=== PATIENT | female | born 1965 | race Two or more races ===

== ENCOUNTER → 2018-06-23 | Outpatient (CLI) | payer OTHER | LOC: LAB 16:56 | PROVIDERS: ATTEND Obstetrics & Gynecology | DX: Z53.9 Procedure and treatment not carried out, unspecified reason (principal) | CPT/HCPCS: 36415; 86850; 86900; 86901 ==

== ENCOUNTER 2018-06-24 08:39 | Inpatient (IN) | payer OTHER ==
[2018-06-21 10:25] LABS: HEMATOCRIT 37.5 % (36.0-47.0); HEMOGLOBIN 12.4 g/dL (12.0-15.5); MEAN CORPUSCULAR HEMOGLOBIN 26.3 pg (27.0-33.4); MEAN CORPUSCULAR HGB CONC 33.1 g/dL (32.0-36.0); MEAN CORPUSCULAR VOLUME 80 fl (80-97); PLATELET COUNT 257 10^3/uL (150-450); RED BLOOD COUNT 4.71 10^6/uL (3.72-5.28); RED CELL DISTRIBUTION WIDTH 15.4 % (11.5-14.0); WHITE BLOOD COUNT 7.7 10^3/uL (4.0-10.5)
[2018-06-21 10:42] LABS: APPEARANCE,URINE CLEAR; BILIRUBIN,URINE NEGATIVE (NEGATIVE); COLOR,URINE YELLOW; GLUCOSE, URINE NEGATIVE (NEGATIVE); KETONES,URINE NEGATIVE (NEGATIVE); LEUKOCYTE ESTERASE,URINE NEGATIVE (NEGATIVE); NITRITE,URINE NEGATIVE (NEGATIVE); PROTEIN,URINE NEGATIVE (NEGATIVE); URINE SPECIFIC GRAVITY 1.012; UROBILINOGEN,URINE NEGATIVE mg/dL (<2.0)
[2018-06-21 10:46] LABS: ALANINE AMINOTRANSFERASE 24 U/L (9-52); ALBUMIN 4.1 g/dL (3.5-5.0); ALKALINE PHOSPHATASE 87 U/L (38-126); ANION GAP 10 (5-19); ASPARTATE AMINO TRANSFERASE 17 U/L (14-36); BILIRUBIN,DIRECT 0.2 mg/dL (0.0-0.4); BILIRUBIN,TOTAL 0.4 mg/dL (0.2-1.3); BLOOD UREA NITROGEN 12 mg/dL (7-20); CALCIUM 9.6 mg/dL (8.4-10.2); CARBON DIOXIDE 29 mmol/L (22-30); CHLORIDE 100 mmol/L (98-107); GLUCOSE 103 mg/dL (75-110); POTASSIUM 4.2 mmol/L (3.6-5.0); SODIUM 139.3 mmol/L (137-145); TOTAL PROTEIN 7.6 g/dL (6.3-8.2)
[~2018-06-24 08:39] MED LIST: CEFAZOLIN 2 GM/D5W RTU 2 GM/50 ML RTUPB IV ONE; CEFAZOLIN 2 GM/D5W RTU 2 GM/50 ML RTUPB IV PRN; LACTATED RINGERS 1000 ML IV PRN; LIDOCAINE 0.5% INJ-PF (5 MG/ML) 50 ML SDV SUBCUT PRN
[2018-06-24] MEDS ORDERED: NEOSTIGMINE METHYLSULFATE 10 MG/10 ML VIAL ONE (08:48)
[2018-06-24] MEDS ORDERED: ONDANSETRON HCL INJ/PF 4 MG/2 ML SDV ONE (08:48)
[2018-06-24] MEDS ORDERED: DEXAMETHASONE SOD PHOSPHATE INJ 4 MG/1 ML VIAL ONE (08:48)
[2018-06-24] MEDS ORDERED: KETOROLAC TROMETHAMINE 60 MG/2 ML SDV ONE (08:48)
[2018-06-24] MEDS ORDERED: GLYCOPYRROLATE 1 MG/5 ML SYRINGE ONE (08:48)
[2018-06-24] MEDS ORDERED: SUCCINYLCHOLINE CHLORIDE INJ 200 MG/10 ML VIAL ONE (08:48)
[2018-06-24] MEDS ORDERED: ROCURONIUM BROMIDE INJ 50 MG/5 ML VIAL IV ONE (08:48)
[2018-06-24] MEDS ORDERED: MIDAZOLAM 2 MG/2 ML INJ ONE (10:46)
[2018-06-24] MEDS ORDERED: FENTANYL CITRATE INJ/PF 250 MCG/5 ML AMPULE ONE (10:46)
[2018-06-24] MEDS ORDERED: ACETAMINOPHEN 1,000 MG/100 ML RTUPB IV ONE (10:47)
[2018-06-24] MEDS ORDERED: PROPOFOL INJ 200 MG/20 ML VIAL IV ONE (10:47)
[2018-06-24] MEDS ORDERED: OXYCODONE-ACETAMINOPHEN 5-325 MG TABLET PO PRN ×3 (11:42→14:07)
[2018-06-24] MEDS ORDERED: DIPHENHYDRAMINE HCL 50 MG/ML VIAL IV PRN (11:42)
[2018-06-24] MEDS ORDERED: PROMETHAZINE HCL INJ 25 MG/1 ML VIAL IV PRN ×3 (11:42→14:07)
[2018-06-24] MEDS ORDERED: MEPERIDINE HCL/PF INJ 25 MG/1 ML DISP.SYRIN IV PRN (11:42)
[2018-06-24] MEDS ORDERED: FENTANYL CITRATE INJ/PF 100 MCG/2 ML AMPUL IV PRN ×2 (11:42)
[2018-06-24] MEDS ORDERED: ACETAMINOPHEN 325 MG TABLET PO PRN (14:07)
[2018-06-24] MEDS ORDERED: SIMETHICONE 80 MG TAB.CHEW PO PRN (14:07)
[2018-06-24] MEDS ORDERED: RINGERS SOLUTION,LACTATED 1,000 ML IV PRN (14:07)
[2018-06-24] MEDS ORDERED: ACETAMINOPHEN 1,000 MG/100 ML RTUPB IV PRN (14:07)
--- NOTE | 2018-06-24 14:26 | Operative Report ---
Operative Report DATE OF SURGERY: 06/24/18 PREOPERATIVE DIAGNOSIS: Heavy menses fibroids and pressure in the pelvis POSTOPERATIVE DIAGNOSIS: Same OPERATION: Laparoscopy followed by an open total abdominal hysterectomy bilateral salpingo-oophorectomy SURGEON: MARIA M SILVER BUTTONER: RAFI MENDOZA ANESTHESIA: GA TISSUE REMOVED OR ALTERED: Uterus ovaries fallopian tubes COMPLICATIONS: None ESTIMATED BLOOD LOSS: 150 cc INTRAOPERATIVE FINDINGS: Fibroid uterus, normal-appearing ovaries, very narrow pelvis PROCEDURE: Patient was taken the OR and placed in supine position. General anesthesia was induced. She is placed in dorsolithotomy position using Edy stirrups. Her vagina perineum and abdomen were prepared and draped in a sterile fashion. The [employer] care uterine manipulator was placed in the uterus after dilating the cervix. A Carr catheter was placed for drainage. Next an incision was made at the umbilicus natural umbilical defect was identified dilated. This allowed to blunt port to be placed. The balloon was inflated. The laparoscope was then used to inspect the pelvis. The uterus had several fibroids. The her pelvis was extremely narrow with poor exposure. It also did not appear that the fibroid uterus would fit out her very narrow vagina. For this reason I decided to proceed with an open case. Patient was placed in a supine position and reprepped and draped. An incision was made on the abdomen in a transverse fashion and carried down the level of fascia. The fascia was nicked in midline and the fascial incision was extended bilaterally. The fascia was off the rectus muscles using sharp and blunt dissection. The rectus muscles were the midline the peritoneum entered without incident. Peritoneal incision was extended superiorly and inferiorly taking care not to injure bladder. The uterus was palpated in the pelvis and grasped with Yazmin thyroid clamp and brought up out of the pelvis. An Prashant retractor was placed. And the bowel contents were packed back with 3 moist lap sponges. Next the round ligaments were clamped ligated and cut using the LigaSure device. This entered the retroperitoneal space. The anterior leaf of the broad ligament was incised creating a bladder flap. Posterior leaf of the broad ligament was incised with Metzenbaum scissors. The the ureter was located at the pelvic brim and away from the operative site bilaterally. The infundibulopelvic pedicles were clamped cut and then doubly ligated with a free tie of 0 Vicryl followed by a transfixation suture of 0 Vicryl bilaterally. The bladder was taken off the anterior aspect of the cervix using sharp and blunt dissection. Next the uterine arteries were skeletonized and they were clamped curved Ayan clamp cut and then ligated with a transfixation suture of 0 Vicryl bilaterally. The cardinal ligaments were clamped with a straight Ayan clamp cut and then ligated with a transfixation suture of 0 Vicryl bilaterally. Upon reaching the vaginal angles the vaginal angles were clamped with curved Ayan clamps. They were then cut and ligated with a transfixation suture of 0 Vicryl. The cervix was then excised free from the vaginal cuff. An angle suture was placed on the patient's right incorporating anterior vaginal mucosa lateral vaginal sidewall and posterior vaginal mucosa. This was tied. The cuff was then closed with a running locking layer of 0 Vicryl. The pelvis was then irrig ated and suctioned free of fluid. There was a small area of bleeding just anterior to the vaginal cuff. And FloSeal was placed to stop this bleeding. The remainder of the pedicles appeared hemostatic. The Prashant retractor was removed and the lap sponges were removed. Counts were correct. The anterior abdominal wall peritoneum was closed with a running 2-0 chromic suture. The subfascial tissues were inspected for bleeding the fascia was closed with a running 0 Vicryl in 2 segments. Wellington's layer was closed with a 2-0 plain gut stitch and skin was closed with a running subcuticular 4-0 undyed Vicryl stitch. She was taken out of anesthesia and taken to recovery room in stable condition.
[2018-06-24] MEDS ORDERED: FENTANYL CITRATE INJ/PF 100 MCG/2 ML AMPUL ONE (14:43)
[2018-06-24] MEDS: FENTANYL CITRATE INJ/PF 100 MCG/2 ML AMPUL IV PRN ×2 (14:45→14:53)
[2018-06-24] MEDS ORDERED: HYDROMORPHONE HCL INJ/PF 2 MG/ML AMPULE ONE (15:02)
[2018-06-24] MEDS: HYDROMORPHONE HCL INJ/PF 2 MG/ML AMPULE IV PRN ×2 (15:02→20:18)
[2018-06-24 15:25] LABS: ABSOLUTE LYMPHOCYTES (AUTO) 0.7 10^3/uL (0.5-4.7); ABSOLUTE MONOCYTES (AUTO) 0.1 10^3/uL (0.1-1.4); ABSOLUTE NEUT (AUTO) 11.5 10^3/uL (1.7-8.2); BASOPHILS % (AUTO) 0.2 % (0-2); EOSINOPHILS % (AUTO) 0.2 % (0-6); HEMOGLOBIN 11.8 g/dL (12.0-15.5); MEAN CORPUSCULAR HEMOGLOBIN 26.2 pg (27.0-33.4); MEAN CORPUSCULAR HGB CONC 32.8 g/dL (32.0-36.0); MEAN CORPUSCULAR VOLUME 80 fl (80-97); MONOCYTES % (AUTO) 1.2 % (3-13); PLATELET COUNT 241 10^3/uL (150-450); RED BLOOD COUNT 4.51 10^6/uL (3.72-5.28); RED CELL DISTRIBUTION WIDTH 15.5 % (11.5-14.0); SEGMENTED NEUTROPHILS % (AUTO) 92.4 % (42-78); TOTAL CELLS COUNTED % (AUTO) 100 %; WHITE BLOOD COUNT 12.4 10^3/uL (4.0-10.5)
[2018-06-24 16:03] LABS: ANION GAP 12 (5-19); BLOOD UREA NITROGEN 8 mg/dL (7-20); CALCIUM 8.7 mg/dL (8.4-10.2); CARBON DIOXIDE 26 mmol/L (22-30); CHLORIDE 102 mmol/L (98-107); GLUCOSE 140 mg/dL (75-110); POTASSIUM 3.6 mmol/L (3.6-5.0); SODIUM 139.6 mmol/L (137-145)
[2018-06-24] MEDS: OXYCODONE-ACETAMINOPHEN 5-325 MG TABLET PO PRN (17:16)
[2018-06-24] MEDS: DOCUSATE SODIUM 100 MG CAPSULE PO SCH (17:16)
[2018-06-24] MEDS ORDERED: MAG HYDROX/AL HYDROX/SIMETH SUSP 30 ML UDCUP PO ONE (20:16)
--- NOTE | 2018-06-24 20:38 | PDOC PROGRESS REPORT ---
Subjective Progress Note for:: 06/24/18 Subjective:: Patient states that she is feeling chest pressure. Pulse ox shows 97% and pulse 60. Patient denies shortness of breath, fever/chills nausea/vomiting peer she states that she is currently very painful. Patient made more comfortable by placing a pillow beneath her knees Reason For Visit: N93.8 OTHER SPECIFIED ABNORMAL U Physical Exam - Physical Exam Vital Signs: Temp Pulse Resp BP Pulse Ox 97.6 F 56 L 16 152/63 H 97 06/24/18 19:42 06/24/18 19:42 06/24/18 19:42 06/24/18 19:42 06/24/18 19:42 Intake & Output 06/23/18 06/24/18 06/25/18 06:59 06:59 06:59 Intake Total 1260 Output Total 1185 Balance 75 Weight 105.23 kg General appearance: PRESENT: no acute distress Respiratory exam: PRESENT: clear to auscultation jeff Cardiovascular exam: PRESENT: RRR GI/Abdominal exam: PRESENT: normal bowel sounds, soft Extremities exam: ABSENT: calf tenderness, clubbing, full ROM, joint swelling, pedal edema, tenderness, +1 edema, +2 edema, other Result Laboratory Results: 06/24/18 15:10 06/24/18 15:10 06/23/18 06/24/18 06/24/18 17:11 15:10 15:10 WBC 12.4 H RBC 4.51 Hgb 11.8 L Hct 36.0 MCV 80 MCH 26.2 L MCHC 32.8 RDW 15.5 H Plt Count 241 Seg Neutrophils % 92.4 H Lymphocytes % 6.0 L Monocytes % 1.2 L Eosinophils % 0.2 Basophils % 0.2 Absolute Neutrophils 11.5 H Absolute Lymphocytes 0.7 Absolute Monocytes 0.1 Absolute Eosinophils 0.0 Absolute Basophils 0.0 Sodium 139.6 Potassium 3.6 Chloride 102 Carbon Dioxide 26 Anion Gap 12 BUN 8 Creatinine 0.63 Est GFR ( Amer) > 60 Est GFR (Non-Af Amer) > 60 Glucose 140 H Calcium 8.7 Blood Type O POSITIVE Antibody Screen NEGATIVE Assessment & Plan - Diagnosis (1) Status post total hysterectomy and bilateral salpingo-oophorectomy (BSO) Is this a current diagnosis for this admission?: Yes (2) Chest tightness or pressure Is this a current diagnosis for this admission?: Yes - Time Time Spent with patient: 25-34 minutes Within: within 48 hours - Plan Summary Plan Summary: 1. Place pulse ox--> saturating 97% and normal pulse rate 60 2. EKG--> normal sinus rhythm 3. Pain management 4. Consider spiral CT, if symptoms worsen 5. Parvez per Dr. Calderon
--- NOTE | 2018-06-24 20:42 | EKG REPORT ---
SEVERITY:- NORMAL ECG - SINUS RHYTHM : Confirmed by: Shawnee Villanueva MD 24-Jun-2018 20:41:45
[2018-06-24] MEDS: KETOROLAC TROMETHAMINE INJ/PF 30 MG/1 ML SDV IV SCH (21:21)
[2018-06-25] MEDS: KETOROLAC TROMETHAMINE INJ/PF 30 MG/1 ML SDV IV SCH ×3 (06:47→21:39)
--- NOTE | 2018-06-25 09:28 | PDOC PROGRESS REPORT ---
Subjective Progress Note for:: 06/25/18 Subjective:: She is doing well today. Reason For Visit: N93.8 OTHER SPECIFIED ABNORMAL U Physical Exam - Physical Exam Vital Signs: Temp Pulse Resp BP Pulse Ox 98.4 F 72 20 144/65 H 100 06/25/18 08:17 06/25/18 08:17 06/25/18 08:17 06/25/18 08:17 06/25/18 08:17 Pulse Oximeter Continuous Start: 06/24/18 19:57 Freq: CONTINUOUS Status: Active Protocol: Document 06/24/18 19:57 LRO (Rec: 06/24/18 20:44 [id number]) Pulse Oximetry Assessment Oxygen Saturation (92-100) 98 Oxygen Delivery Method Room Air Fraction of Inspired Oxygen (FIO2) 21 Equipment Usage Equipment in Use Continuous Pulse Oximeter 24 Hour Charge Charge Now Continuous SpO2 Machine # [id number] Intake & Output 06/24/18 06/25/18 06/26/18 06:59 06:59 06:59 Intake Total 1260 Output Total 1860 Balance -600 Weight 105.23 kg General appearance: PRESENT: no acute distress - dressing is dry, well- developed, well-nourished Result Laboratory Results: 06/24/18 15:10 06/24/18 15:10 06/23/18 06/24/18 06/24/18 17:11 15:10 15:10 WBC 12.4 H RBC 4.51 Hgb 11.8 L Hct 36.0 MCV 80 MCH 26.2 L MCHC 32.8 RDW 15.5 H Plt Count 241 Seg Neutrophils % 92.4 H Lymphocytes % 6.0 L Monocytes % 1.2 L Eosinophils % 0.2 Basophils % 0.2 Absolute Neutrophils 11.5 H Absolute Lymphocytes 0.7 Absolute Monocytes 0.1 Absolute Eosinophils 0.0 Absolute Basophils 0.0 Sodium 139.6 Potassium 3.6 Chloride 102 Carbon Dioxide 26 Anion Gap 12 BUN 8 Creatinine 0.63 Est GFR ( Amer) > 60 Est GFR (Non-Af Amer) > 60 Glucose 140 H Calcium 8.7 Blood Type O POSITIVE Antibody Screen NEGATIVE Impressions: POD number one Assessment & Plan - Diagnosis (1) Fibroids Is this a current diagnosis for this admission?: Yes (2) Heavy menses Is this a current diagnosis for this admission?: Yes - Plan Summary Plan Summary: Plan to remove barnes and advance diet. Ambulate.
[2018-06-25] MEDS: OXYCODONE-ACETAMINOPHEN 5-325 MG TABLET PO PRN (09:39)
[2018-06-25] MEDS: DOCUSATE SODIUM 100 MG CAPSULE PO SCH ×2 (09:40→17:33)
[2018-06-25] MEDS: PRENATAL VITAMIN W DHA CAPSULE PO SCH (09:40)
[2018-06-25 10:20] LABS: ABSOLUTE LYMPHOCYTES (AUTO) 1.9 10^3/uL (0.5-4.7); ABSOLUTE MONOCYTES (AUTO) 0.9 10^3/uL (0.1-1.4); ABSOLUTE NEUT (AUTO) 9.3 10^3/uL (1.7-8.2); BASOPHILS % (AUTO) 0.2 % (0-2); EOSINOPHILS % (AUTO) 0.3 % (0-6); HEMATOCRIT 34.1 % (36.0-47.0); HEMOGLOBIN 11.2 g/dL (12.0-15.5); LYMPHOCYTES % (AUTO) 15.6 % (13-45); MEAN CORPUSCULAR HEMOGLOBIN 25.9 pg (27.0-33.4); MEAN CORPUSCULAR HGB CONC 32.9 g/dL (32.0-36.0); MEAN CORPUSCULAR VOLUME 79 fl (80-97); MONOCYTES % (AUTO) 7.1 % (3-13); PLATELET COUNT 278 10^3/uL (150-450); RED BLOOD COUNT 4.33 10^6/uL (3.72-5.28); RED CELL DISTRIBUTION WIDTH 15.6 % (11.5-14.0); SEGMENTED NEUTROPHILS % (AUTO) 76.8 % (42-78); TOTAL CELLS COUNTED % (AUTO) 100 %; WHITE BLOOD COUNT 12.1 10^3/uL (4.0-10.5)
[2018-06-25 11:02] LABS: ANION GAP 10 (5-19); BLOOD UREA NITROGEN 10 mg/dL (7-20); CALCIUM 8.6 mg/dL (8.4-10.2); CARBON DIOXIDE 29 mmol/L (22-30); CHLORIDE 100 mmol/L (98-107); GLUCOSE 144 mg/dL (75-110); POTASSIUM 3.7 mmol/L (3.6-5.0); SODIUM 139.1 mmol/L (137-145)
[2018-06-26] MEDS: KETOROLAC TROMETHAMINE INJ/PF 30 MG/1 ML SDV IV SCH ×3 (06:15→21:45)
--- NOTE | 2018-06-26 07:11 | PDOC PROGRESS REPORT ---
Subjective Progress Note for:: 06/26/18 Subjective:: Doing well today. Reason For Visit: N93.8 OTHER SPECIFIED ABNORMAL U Physical Exam - Physical Exam Vital Signs: Temp Pulse Resp BP Pulse Ox 98.6 F 66 14 119/62 98 06/26/18 03:29 06/26/18 03:29 06/26/18 03:29 06/26/18 03:29 06/26/18 04:05 Pulse Oximeter Continuous Start: 06/24/18 19:57 Freq: RTQ4 Status: Active Protocol: Document 06/26/18 04:05 NSM (Rec: 06/26/18 06:04 NSM [id number]) Pulse Oximetry Assessment Oxygen Saturation (92-100) 98 Oxygen Delivery Method Room Air Fraction of Inspired Oxygen (FIO2) 21 Equipment Usage Equipment Standby Continuous SpO2 Machine # [id number] Intake & Output 06/25/18 06/26/18 06/27/18 06:59 06:59 06:59 Intake Total 1260 1600 Output Total 1860 1150 Balance -600 450 Weight 105.23 kg General appearance: PRESENT: no acute distress - Abdomen soft and dressing is dry, well-developed, well-nourished Result Laboratory Results: 06/25/18 09:56 06/25/18 09:56 06/25/18 06/25/18 09:56 09:56 WBC 12.1 H RBC 4.33 Hgb 11.2 L Hct 34.1 L MCV 79 L MCH 25.9 L MCHC 32.9 RDW 15.6 H Plt Count 278 Seg Neutrophils % 76.8 Lymphocytes % 15.6 Monocytes % 7.1 Eosinophils % 0.3 Basophils % 0.2 Absolute Neutrophils 9.3 H Absolute Lymphocytes 1.9 Absolute Monocytes 0.9 Absolute Eosinophils 0.0 Absolute Basophils 0.0 Sodium 139.1 Potassium 3.7 Chloride 100 Carbon Dioxide 29 Anion Gap 10 BUN 10 Creatinine 0.67 Est GFR ( Amer) > 60 Est GFR (Non-Af Amer) > 60 Glucose 144 H Calcium 8.6 Impressions: POD number 2. She is doing well. Assessment & Plan - Diagnosis (1) Fibroids Is this a current diagnosis for this admission?: Yes (2) Heavy menses Is this a current diagnosis for this admission?: Yes - Time Time Spent with patient: 15-24 minutes Anticipated discharge: Home Within: within 36 hours - Plan Summary Plan Summary: Plan to work on ambulation, diet and pain control today. Most likely home tomorrow.
[2018-06-26] MEDS: OXYCODONE-ACETAMINOPHEN 5-325 MG TABLET PO PRN (08:38)
[2018-06-26] MEDS: DOCUSATE SODIUM 100 MG CAPSULE PO SCH ×2 (12:09→18:18)
[2018-06-26] MEDS: PRENATAL VITAMIN W DHA CAPSULE PO SCH (12:09)
[2018-06-27] MEDS: KETOROLAC TROMETHAMINE INJ/PF 30 MG/1 ML SDV IV SCH (05:35)
--- NOTE | 2018-06-27 09:07 | PDOC DISCHARGE SUMMARY ---
General - Admit/Disc Date/PCP Admission Date/Primary Care Provider: 06/24/18 08:45 ALFREDO SAAVEDRA NP Discharge Date: 06/27/18 - Discharge Diagnosis (1) Fibroids Is this a current diagnosis for this admission?: Yes (2) Heavy menses Is this a current diagnosis for this admission?: Yes - Additional Information Home Medications: Cyanocobalamin (Vitamin B-12) [Vitamin B12] 500 mcg PO DAILY 06/20/18 Ergocalciferol (Vitamin D2) [Vitamin D2] 50 mcg PO 06/20/18 Ferrous Sulfate [Iron] 325 mg PO DAILY 06/20/18 Metformin HCl [Metformin ER Gastric] 500 mg PO HSP PRN 06/20/18 Simvastatin [Zocor 10 mg Tablet] 10 mg PO HSP PRN 06/20/18 History of Present Illness Patient complains of: Heavy menses dysmenorrhea pelvic pain History of Present Illness: REEMA OCHOA is a 52 year old female She presents with a long history of heavy menses dysmenorrhea pelvic pain with fibroid uterus. She requests definitive surgical treatment with a hysterectomy bilateral subbing oophorectomy. Hospital Course Hospital Course: Patient underwent a open hysterectomy with removal of the ovaries and tubes. She did well postoperatively. By postop day 3 she is tolerating a regular diet moving well and pain is controlled with oral pain medication. She is ready to go home at this point. Physical Exam - Physical Exam Vital Signs: Temp Pulse Resp BP Pulse Ox 97.7 F 56 L 15 136/56 H 98 06/27/18 03:34 06/27/18 03:34 06/27/18 03:34 06/27/18 03:34 06/27/18 03:34 Pulse Oximeter Continuous Start: 06/24/18 19:57 Freq: RTQ4 Status: Complete Protocol: Document 06/26/18 09:14 DBE (Rec: 06/26/18 09:16 [id number]) Pulse Oximetry Assessment Oxygen Saturation (92-100) 98 Oxygen Delivery Method Room Air Fraction of Inspired Oxygen (FIO2) 21 Equipment Usage Equipment Standby Continuous SpO2 Machine # [id number] Intake & Output 06/26/18 06/27/18 06/28/18 06:59 06:59 06:59 Intake Total 1600 2089 Output Total 1150 Balance 450 2089 General appearance: PRESENT: no acute distress, well-developed, well-nourished Head exam: PRESENT: atraumatic, normocephalic GI/Abdominal exam: PRESENT: normal bowel sounds, soft, other - Incision is clean dry and intact. ABSENT: distended, guarding, mass, organolmegaly, rebound, ten derness Result Laboratory Results: 06/25/18 09:56 06/25/18 09:56 Impressions: Postop day 3 doing well ready to go home Plan Discharge Plan: Discharged home. No driving for 2 weeks. Follow-up in the office next week. Plan rest at home with limited activity. Acute Heart Failure Is this a Heart Failure Patient?: No
[2018-06-27] MEDS: DOCUSATE SODIUM 100 MG CAPSULE PO SCH (09:17)
[2018-06-27] MEDS: PRENATAL VITAMIN W DHA CAPSULE PO SCH (09:17)
[2018-06-27 13:15] VITALS: BP 136/56
[2018-06-30] MEDS ORDERED: IBUPROFEN 800 MG TABLET PO SCH (06:00)
== END 2018-06-27 13:48 | disposition home or self-care (01) | DRG 743 ==
LOC: OROUT 08:39 → 2S 08:45
PROVIDERS: ADMIT Obstetrics & Gynecology; ATTEND Obstetrics & Gynecology
PROC: 0UT20ZZ Resection of Bilateral Ovaries, Open Approach (ICD-10-PCS; 2018-06-24)
PROC: 0UT70ZZ Resection of Bilateral Fallopian Tubes, Open Approach (ICD-10-PCS; 2018-06-24)
PROC: 0UJD4ZZ Inspection of Uterus and Cervix, Percutaneous Endoscopic Approach (ICD-10-PCS; 2018-06-24)
PROC: 0UT90ZZ Resection of Uterus, Open Approach (ICD-10-PCS; principal; 2018-06-24 10:45)
DX: D25.0 Submucous leiomyoma of uterus (principal); N93.8 Other specified abnormal uterine and vaginal bleeding; Z79.84 Long term (current) use of oral hypoglycemic drugs; R07.89 Other chest pain
CPT/HCPCS: 36415; 80048; 80053; 81001; 82962; 840; 85025; 85027; 86850; 86900; 86901; 88307; 93005; 93010; 94762; 94799; J0131; J0330; J0690; J1100; J1170; J1885; J2250; J2405; J2704; J2710; J3010; J3490